=== PATIENT | male | born 1945 | race Caucasian/White ===

== ENCOUNTER 2018-02-12 13:50 | Inpatient (IN) | payer OTHER ==
[2018-02-12 14:03] VITALS: BMI 35.2
--- NOTE | 2018-02-12 14:23 | PDOC ---
History of Present Illness - General Chief Complaint: Revisit, Lab Variance Stated Complaint: ANEMIA Time Seen by Provider: 02/12/18 14:21 - History of Present Illness Initial Comments: 02/12/18 14:22 Mr. Gomez is a 72 yo male w/ pmh of GERD, HTN, afib, anxiety, schizophrenia , colon cancer (s/p resection) who presents from [facility] for evaluation of anemia noted on labs. Patient was found to have hemoglobin of 7.4 and was sent to [facility] for transfusion. Mr. Cueto reports he has no complaints however has felt increasingly tired over the last few months. The patient denies chest pain, shortness of breath, headache and dizziness. Denies fever, chills, nausea, vomit, diarrhea and constipation. Denies dysuria, frequency, urgency and hematuria. 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 No fever or chills. HEAD, EYES, EARS, NOSE AND THROAT: No change in vision. No ear pain or discharge. No sore throat. CARDIOVASCULAR: +increasing shortness of breath. No chest pain RESPIRATORY: No cough, wheezing, or hemoptysis. GASTROINTESTINAL: No nausea, vomiting, diarrhea or constipation. GENITOURINARY: No dysuria, frequency, or change in urination. MUSCULOSKELETAL: No joint or muscle swelling or pain. No neck or back pain. SKIN: No rash NEUROLOGIC: No headache, vertigo, loss of consciousness, or change in strength/ sensation. ENDOCRINE: No increased thirst. No abnormal weight change HEMATOLOGIC/LYMPHATIC: No anemia, easy bleeding, or history of blood clots. ALLERGIC/IMMUNOLOGIC: No hives or skin allergy. *Physical Exam - Vital Signs Last Vital Signs Temp Pulse Resp BP Pulse Ox 98.1 F 73 20 119/61 95 02/12/18 13:59 02/12/18 13:59 02/12/18 13:59 02/12/18 13:59 02/12/18 13:59 - Physical Exam Comments: 02/12/18 14:23 GENERAL: +Patient generally pale appearing. Awake, alert, and fully oriented, in no acute distress HEAD: No signs of trauma, normocephalic, atraumatic EYES: PERRLA, EOMI, sclera anicteric, conjunctiva clear ENT: Auricles normal inspection, hearing grossly normal, nares patent, oropharynx clear without exudates. Moist mucosa NECK: Normal ROM, supple, no lymphadenopathy, JVD, or masses LUNGS: No distress, speaks full sentences, clear to auscultation bilaterally HEART: Regular rate and rhythm, normal S1 and S2, no murmurs, rubs or gallops, peripheral pulses normal and equal bilaterally. ABDOMEN: Soft, nontender, normoactive bowel sounds. No guarding, no rebound. No masses EXTREMITIES: Normal inspection, Normal range of motion, no edema. No clubbing or cyanosis. NEUROLOGICAL: Cranial nerves II through XII grossly intact. Normal speech, normal gait, no focal sensorimotor deficits SKIN: Warm, Dry, normal turgor, no rashes or lesions noted. ED Treatment Course - LABORATORY CBC & Chemistry Diagram: 02/12/18 15:00 02/12/18 15:00 Medical Decision Making - Medical Decision Making 02/12/18 16:58 Mr. Cueto is a 72 yo male w/ pmh as described who presents for evaluation of anemia noted on routine labs. Anemia confirmed in ER. 1 unit PRBC's ordered for evaluation. Patient will be admitted for further evaluation of anemia source. *DC/Admit/Observation/Transfer Diagnosis at time of Disposition: Anemia Qualifiers: Anemia type: unspecified type Qualified Code(s): D64.9 - Anemia, unspecified - Discharge Dispostion Decision to Admit order: Yes - Referrals Referrals: Sharee Slaughter MD [Primary Care Provider] - - Patient Instructions - Post Discharge Activity
--- NOTE | 2018-02-12 14:50 | PDOC ---
Attending Attestation - Resident Resident Name: Wilfrid Ramesh - ED Attending Attestation I have performed the following: I have examined & evaluated the patient, The case was reviewed & discussed with the resident, I agree w/resident's findings & plan, Exceptions are as noted - HPI HPI: 02/12/18 14:42 72y M hx of hx of gerd, afib not on ac, htn, schizophrenia, colon resection due to ca from [facility] presnts with hgb for transfusion and gi w/u. pt notes mild kwon generally weakness. denies any recet cp, sob, bpr, melena. will recheck hbg will reassess and dw PMD - Physicial Exam PE: 02/12/18 16:17 General: well appearing, no distress Abd: soft nontender, slightly distended - Medical Decision Making 02/12/18 16:15 labs reviewed cbc noted to be anemic to 7.9, pt notes he typically runs in the 8-9 range, but in jul, his hbg was 15 and in october it was 12. pt does endorse some kwon/sob and feeling lightheaded which is a chronic feeling for him will ck with dr. cardenas regarding whether she would prefer to transfuse and regarding GI workup as inpatient or outpatient. 02/12/18 16:[address] cardenas's [employer]K [employer] requests admission for further workup for symptomatic anemia
[2018-02-12 15:44] LABS: BASO % 0.6 % (0-2.0); EOS % 1.7 % (0-4.5); HEMATOCRIT 26.3 % (35.4-49); HEMOGLOBIN 7.9 GM/dL (11.7-16.9); MCH 21.3 pg (25.7-33.7); MCHC 30.2 g/dl (32.0-35.9); MEAN CELL VOLUME 70.8 fl (80-96); MEAN PLT VOLUME 7.7 fl (7.5-11.1); MONO % 8.7 % (3.8-10.2); PLATELET COUNT 382 K/MM3 (134-434); RBC 3.71 M/mm3 (4.00-5.60); RDW 21.3 % (11.9-15.9); WHITE BLOOD COUNT 7.6 K/mm3 (4.0-10.0)
[2018-02-12 15:56] LABS: INR 1.15 (0.82-1.09)
[2018-02-12 15:59] LABS: ACTIVATED PTT 23.5 SECONDS (25.2-36.5)
[2018-02-12 16:11] LABS: ALBUMIN 3.2 g/dl (3.4-5.0); ANION GAP 8 (8-16); BILIRUBIN,TOTAL 0.7 mg/dL (0.2-1.0); BLOOD UREA NITROGEN 9 mg/dL (7-18); CALCIUM 10.2 mg/dL (8.5-10.1); CHLORIDE 104 mmol/L (98-107); CO2 31 mmol/L (21-32); CREATININE 0.9 mg/dL (0.7-1.3); GLUCOSE,RANDOM 116 mg/dL (74-106); POTASSIUM 3.5 mmol/L (3.5-5.1); SGOT/AST 17 U/L (15-37); SGPT/ALT 18 U/L (12-78); SODIUM 143 mmol/L (136-145); TOT PROT 6.7 g/dl (6.4-8.2)
[2018-02-12 16:12] LABS: ALK PHOS 127 U/L (45-117)
--- NOTE | 2018-02-12 17:34 | HP ---
Admitting History and Physical - Primary Care Physician PCP: Sharee Slaughter I - Admission Chief Complaint: low hgb, weakness, sob, body aches History of Present Illness: This is a 72 year old male with pmhx colon ca s/p resection 11, pernicious anemia, htn, a fib (not on ac), GERD, anxiety schizophrenia presented from [facility], where he is a resident, due to hgb level of 7.4. Pt has regularly been seeing a hemetolgoist at [place] Dr. Will Prather, however in October 2017 was told they no longer take his insurance. During his visits, his hgb has been stable ~15 -12. Since parting [facility], Dr. Slaughter has been following him. Pt reports for 2-3 weeks hes been feeling fatigue and sob with activities with associated muscles aches. Denies dizziness, logan, hematochezia, hematuria n/v, changes in bowel urine, chest pain. Note: pt states he drink chuckie seltzer plus nightly with 325mg daily History Source: Patient Limitations to Obtaining History: No Limitations - Past Medical History Cardiovascular: Yes: AFIB, HTN Gastrointestinal: Yes: Cancer, GERD Heme/Onc: Yes: Anemia Psych: Yes: Anxiety, Schizophrenia - Past Surgical History Past Surgical History: Yes: Colectomy - Smoking History Smoking history: Former smoker Have you smoked in the past 12 months: No If you are a former smoker, when did you quit?: 10YRS - Alcohol/Substance Use Hx Alcohol Use: No - Social History Usual Living Arrangement: Yes: Assisted Living ADL: Independent Home Medications - Allergies Allergies/Adverse Reactions: Allergies Allergy/AdvReac Type Severity Reaction Status Date / Time chlorpromazine Allergy Verified 02/12/18 13:59 [From Thorazine] haloperidol [From Haldol] Allergy Verified 02/12/18 13:59 Penicillins Allergy Verified 02/12/18 13:57 Review of Systems - Review of Systems Constitutional: reports: Lethargy, Weakness Eyes: reports: No Symptoms HENT: reports: No Symptoms Neck: reports: No Symptoms Cardiovascular: reports: No Symptoms Respiratory: reports: SOB on Exertion Gastrointestinal: reports: No Symptoms Genitourinary: reports: No Symptoms Musculoskeletal: reports: No Symptoms Integumentary: reports: Pallor Neurological: reports: No Symptoms Endocrine: reports: No Symptoms Hematology/Lymphatic: reports: No Symptoms Psychiatric: reports: No Symptoms Physical Examination Vital Signs: Vital Signs Temperature 98.1 F 02/12/18 13:59 Pulse Rate 73 02/12/18 13:59 Respiratory Rate 20 02/12/18 13:59 Blood Pressure 119/61 02/12/18 13:59 O2 Sat by Pulse Oximetry (%) 95 02/12/18 13:59 Constitutional: Yes: Pallor Eyes: Yes: Conjunctiva Clear HENT: Yes: Atraumatic Cardiovascular: Yes: Regular Rate and Rhythm, S1, S2 Respiratory: Yes: CTA Bilaterally, Diminished Gastrointestinal: Yes: Normal Bowel Sounds, Soft Musculoskeletal: Yes: WNL Extremities: Yes: WNL Edema: No Integumentary: Yes: WNL Neurological: Yes: Alert, Oriented, Cran Nerves II-XII Intact Psychiatric: Yes: Alert, Oriented Labs: CBC, BMP 02/12/18 15:00 02/12/18 15:00 Imaging - Results Chest X-ray: Pending, Image Reviewed Problem List - Problems (1) Anemia Code(s): D64.9 - ANEMIA, UNSPECIFIED Qualifiers: Anemia type: unspecified type Qualified Code(s): D64.9 - Anemia, unspecified Assessment/Plan Assessment: 72 year old male admitted with anemia Plan: 1. Symptomatic acute blood loss anemia, hx of pernicious anemia - Has been taking chuckie seltzer plus (ASA 325mg) - Acute drop in hgb - Obtain iron studies - Transfuse 1uprbc - Stool occult negative - Daily b12 - GI consulted eval for scope 2. AFIB - Rate controlled, no AC - Continue lopressor 50mg BID 3. HTN - Lopressor BID 4. GERD - Protonix daily 5. Psych - No meds 6. DVT - hold chemical ac, scds Visit type - Emergency Visit Emergency Visit: Yes Care time: The patient presented to the Emergency Department on the above date and was hospitalized for further evaluation of their emergent condition. - New Patient This patient is new to me today: Yes Date on this admission: 02/12/18 - Critical Care Critical Care patient: No Hospitalist Screening - Colonoscopy Questionnaire Colonoscopy Questionnaire: Colonoscopy Questionnaire - Patient: 50 - 75 years old and never had a screening colonoscopy: Yes History of colon or rectal polyps, or CA: Yes History of IBD, Crohn's disease or UC: Unknown History of abdominal radiation therapy as a child: Unknown - Relative: 1 with colon or rectal CA, or polyps at age 60 or younger: Unknown Colon or rectal CA diagnosed at age 45 or younger: Unknown Multiple relatives with colon or rectal CA: Unknown - Outcome: Screening Result: Positive Screen
[2018-02-12 18:36] LABS: ANISOCYTOSIS 2+; MACROCYTOSIS 1+; OVALOCYTE 1+
[2018-02-12 18:37] LABS: PLATELET ESTIMATE ADEQUATE
[2018-02-12 21:31] LABS: URINE APPEARANCE TURBID; URINE BILIRUBIN NEGATIVE (<2.0 mg/dL); URINE COLOR AMBER; URINE GLUCOSE (UA) NEGATIVE (NEGATIVE); URINE KETONE NEGATIVE (NEGATIVE); URINE LEUK ESTERASE NEGATIVE (NEGATIVE); URINE NITRITE NEGATIVE (NEGATIVE); URINE UROBILINOGEN 4.0 E.U/dl mg/dL (0.2-1.0)
[2018-02-12 21:35] LABS: URINE PROTEIN 1+ (NEGATIVE)
[2018-02-12 21:47] LABS: URINE HYALINE CAST 10 /lpf; URINE MUCUS RARE
[2018-02-12] MEDS: PANTOPRAZOLE 40 MG TABLET (FP) PO SCH (22:40)
[2018-02-12] MEDS: METOPROLOL TARTRATE 50 MG TABLET (FP) PO SCH (22:40)
--- NOTE | 2018-02-13 05:44 | HOSP ---
Subjective - Review of Symptoms Events since last encounter: nurse called to report pt unable to lay flat for CT. CT abdomen/pelvis ordered as ? pneumoperitoneum noted on CXR. Subjective: Pt reports when he went to lay flat for CT he felt pressure in his head and ears and had to sit back up. He reports that he has been getting these symptoms followed by dizziness for years since the 70s. He denies abdominal pain, discomfort, nausea, vomiting. Physical Examination Vital Signs: Vital Signs Temperature 98.3 F 02/13/18 01:06 Pulse Rate 70 02/13/18 01:06 Respiratory Rate 18 02/13/18 01:06 Blood Pressure 122/68 02/13/18 01:06 O2 Sat by Pulse Oximetry (%) 96 02/13/18 02:00 Constitutional: Yes: No Distress, Calm Cardiovascular: Yes: Regular Rate and Rhythm, S1, S2 Respiratory: Yes: CTA Bilaterally, Diminished (bilat bases) Gastrointestinal: Yes: Normal Bowel Sounds, Soft. No: Tenderness Edema: LLE: Trace, RLE: 1+ Labs: CBC, BMP 02/12/18 15:00 02/12/18 15:00 Hospitalist Encounter Assessment: abnormal findings on chest xray--?pneumoperitoneum - abdominal exam benign and pt denies complaints - pt unable to lay flat for CT - will resume diet as pt with no complaints Vertigo - chronic, ongoing, no further workup indicated at this time
[2018-02-13 07:36] LABS: BASO % 0.6 % (0-2.0); EOS % 2.1 % (0-4.5); HEMATOCRIT 26.7 % (35.4-49); HEMOGLOBIN 8.5 GM/dL (11.7-16.9); LYMPH % 11.1 % (8-40); MCH 23.2 pg (25.7-33.7); MEAN CELL VOLUME 72.7 fl (80-96); MEAN PLT VOLUME 7.6 fl (7.5-11.1); MONO % 10.2 % (3.8-10.2); PLATELET COUNT 307 K/MM3 (134-434); RBC 3.68 M/mm3 (4.00-5.60); RDW 21.7 % (11.9-15.9); WHITE BLOOD COUNT 8.7 K/mm3 (4.0-10.0)
[2018-02-13 08:06] LABS: ALBUMIN 2.9 g/dl (3.4-5.0); CALCIUM 9.6 mg/dL (8.5-10.1); CHLORIDE 106 mmol/L (98-107); POTASSIUM 3.3 mmol/L (3.5-5.1); SODIUM 141 mmol/L (136-145)
[2018-02-13 08:12] LABS: ALK PHOS 113 U/L (45-117); ANION GAP 4 (8-16); BILIRUBIN,TOTAL 0.8 mg/dL (0.2-1.0); BLOOD UREA NITROGEN 11 mg/dL (7-18); CO2 31 mmol/L (21-32); CREATININE 0.9 mg/dL (0.7-1.3); GLUCOSE,RANDOM 96 mg/dL (74-106); SGOT/AST 16 U/L (15-37); SGPT/ALT 15 U/L (12-78); TOT PROT 6.2 g/dl (6.4-8.2)
[2018-02-13] MEDS ORDERED: POTASSIUM CHLORIDE ORAL LIQUID 20 MEQ/15 ML PO ONE ×2 (09:15→12:00)
[2018-02-13] MEDS: METOPROLOL TARTRATE 50 MG TABLET (FP) PO SCH ×2 (12:12→21:53)
[2018-02-13] MEDS: CALCIUM 500MG/VIT-D 200 UNITS COMBO TABLET (FP) PO SCH (12:13)
--- NOTE | 2018-02-13 12:44 | PN ---
Physical Exam: SUBJECTIVE: Patient seen and examined. Feels much improved, sob with ambulation , dizziness and body aches resolved. OBJECTIVE: Vital Signs Period Temp Pulse Resp BP Sys/Bautista Pulse Ox Last 24 Hr 97.6 F-98.4 F 70-87 18-20 119-141/61-80 95-97 Pe Neuro: alert, awake, cn 2-12 intact Pulm: CTAB CV: s1 s2 rrr Abd: obese abd, s nt nd + bs Ext: warm, trace le edema Laboratory Results - last 24 hr 02/12/18 02/12/18 02/12/18 15:00 15:00 15:00 WBC 7.6 RBC 3.71 L Hgb 7.9 L Hct 26.3 L MCV 70.8 L MCH 21.3 L MCHC 30.2 L RDW 21.3 H Plt Count 382 MPV 7.7 Absolute Neuts (auto) 5.9 Neutrophils % 78.0 Lymphocytes % 11.0 Monocytes % 8.7 Eosinophils % 1.7 Basophils % 0.6 Nucleated RBC % 0 Hypochromia 2+ Platelet Estimate Adequate Platelet Comment Polychromasia 1+ Poikilocytosis 1+ Anisocytosis 2+ Microcytosis 1+ Macrocytosis 1+ Ovalocytes 1+ PT with INR 13.00 INR 1.15 H PTT (Actin FS) 23.5 L Sodium 143 Potassium 3.5 Chloride 104 Carbon Dioxide 31 Anion Gap 8 BUN 9 Creatinine 0.9 Creat Clearance w eGFR > 60 Random Glucose 116 H Calcium 10.2 H Ferritin Total Bilirubin 0.7 AST 17 ALT 18 Alkaline Phosphatase 127 H Total Protein 6.7 Albumin 3.2 L Urine Color Urine Appearance Urine pH Ur Specific [place] Urine Protein Urine Glucose (UA) Urine Ketones Urine Blood Urine Nitrite Urine Bilirubin Urine Urobilinogen Ur Leukocyte Esterase Urine WBC (Auto) Urine RBC (Auto) Hyaline Casts Urine Mucus Stool Occult Blood Blood Type Antibody Screen Crossmatch 02/12/18 02/12/18 02/12/18 15:00 15:00 15:20 WBC RBC Hgb Hct MCV MCH MCHC RDW Plt Count MPV Absolute Neuts (auto) Neutrophils % Lymphocytes % Monocytes % Eosinophils % Basophils % Nucleated RBC % Hypochromia Platelet Estimate Platelet Comment Polychromasia Poikilocytosis Anisocytosis Microcytosis Macrocytosis Ovalocytes PT with INR INR PTT (Actin FS) Sodium Potassium Chloride Carbon Dioxide Anion Gap BUN Creatinine Creat Clearance w eGFR Random Glucose Calcium Ferritin 2.2 L Total Bilirubin AST ALT Alkaline Phosphatase Total Protein Albumin Urine Color Urine Appearance Urine pH Ur Specific [place] Urine Protein Urine Glucose (UA) Urine Ketones Urine Blood Urine Nitrite Urine Bilirubin Urine Urobilinogen Ur Leukocyte Esterase Urine WBC (Auto) Urine RBC (Auto) Hyaline Casts Urine Mucus Stool Occult Blood Negative Blood Type A POSITIVE Antibody Screen Negative Crossmatch See Detail 02/12/18 02/12/18 02/13/18 17:20 20:45 06:15 WBC 8.7 RBC 3.68 L Hgb 8.5 L Hct 26.7 L MCV 72.7 L MCH 23.2 L MCHC 32.0 RDW 21.7 H Plt Count 307 MPV 7.6 Absolute Neuts (auto) 6.6 Neutrophils % 76.0 Lymphocytes % 11.1 Monocytes % 10.2 Eosinophils % 2.1 Basophils % 0.6 Nucleated RBC % 0 Hypochromia Platelet Estimate Platelet Comment Polychromasia Poikilocytosis Anisocytosis Microcytosis Macrocytosis Ovalocytes PT with INR INR PTT (Actin FS) Sodium Potassium Chloride Carbon Dioxide Anion Gap BUN Creatinine Creat Clearance w eGFR Random Glucose Calcium Ferritin Total Bilirubin AST ALT Alkaline Phosphatase Total Protein Albumin Urine Color Jeanie Urine Appearance Turbid Urine pH 7.0 Ur Specific [place] 1.013 Urine Protein 1+ H Urine Glucose (UA) Negative Urine Ketones Negative Urine Blood Negative Urine Nitrite Negative Urine Bilirubin Negative Urine Urobilinogen 4.0 e.u/dl Ur Leukocyte Esterase Negative Urine WBC (Auto) 9 Urine RBC (Auto) 2 Hyaline Casts 10 Urine Mucus Rare Stool Occult Blood Blood Type A POSITIVE Antibody Screen Crossmatch 02/13/18 06:15 WBC RBC Hgb Hct MCV MCH MCHC RDW Plt Count MPV Absolute Neuts (auto) Neutrophils % Lymphocytes % Monocytes % Eosinophils % Basophils % Nucleated RBC % Hypochromia Platelet Estimate Platelet Comment Polychromasia Poikilocytosis Anisocytosis Microcytosis Macrocytosis Ovalocytes PT with INR INR PTT (Actin FS) Sodium 141 Potassium 3.3 L Chloride 106 Carbon Dioxide 31 Anion Gap 4 L BUN 11 D Creatinine 0.9 Creat Clearance w eGFR > 60 Random Glucose 96 Calcium 9.6 Ferritin Total Bilirubin 0.8 AST 16 ALT 15 Alkaline Phosphatase 113 Total Protein 6.2 L Albumin 2.9 L Urine Color Urine Appearance Urine pH Ur Specific [place] Urine Protein Urine Glucose (UA) Urine Ketones Urine Blood Urine Nitrite Urine Bilirubin Urine Urobilinogen Ur Leukocyte Esterase Urine WBC (Auto) Urine RBC (Auto) Hyaline Casts Urine Mucus Stool Occult Blood Blood Type Antibody Screen Crossmatch Active Medications Generic Name Dose Route Start Last Admin Trade Name Aixa PRN Reason Stop Dose Admin Calcium Carbonate/Cholecalciferol 1 tab 02/13/18 10:00 02/13/18 12:13 Os-Tu 500+D - PO 1 tab DAILY LIDIA Administration Cyanocobalamin 100 mcg 02/13/18 10:00 Vitamin B12 - PO DAILY LIDIA Metoprolol Tartrate 50 mg 02/12/18 22:00 02/13/18 12:12 Lopressor - PO 50 mg BID LIDIA Administration Pantoprazole Sodium 40 mg 02/12/18 22:00 02/12/18 22:40 Protonix - PO 40 mg HS LIDIA Administration Assessment: 72 year old male admitted with anemia Plan: 1. Symptomatic acute blood loss anemia, hx of pernicious anemia - Transfused 1uprbc with appropriate rise - Has been taking chuckie seltzer plus (ASA 325mg) - Iron studies pending - Daily b12 - GI consulted eval for scope 2. abnormal findings on chest xray--?pneumoperitoneum - Repeat CXR flat up right - No abdominal signs/sx 3. AFIB - Rate controlled, no AC - Continue lopressor 50mg BID 4. HTN - Lopressor BID 5. GERD - Protonix daily 6. Psych - No meds 7. DVT - hold chemical ac, scds 8. Hypokalemia - Replete potassium 40meq x1 Problem List - Problems (1) Anemia Code(s): D64.9 - ANEMIA, UNSPECIFIED Qualifiers: Anemia type: unspecified type Qualified Code(s): D64.9 - Anemia, unspecified Visit type - Emergency Visit Emergency Visit: Yes ED Registration Date: 02/12/18 Care time: The patient presented to the Emergency Department on the above date and was hospitalized for further evaluation of their emergent condition. - New Patient This patient is new to me today: No - Critical Care Critical Care patient: No
[2018-02-13] MEDS: CYANOCOBALAMIN (VITAMIN B-12) 100 MCG TABLET PO SCH (15:00)
--- NOTE | 2018-02-13 17:15 | CON.GI ---
Consult Consult Specialty:: GI Reason for Consultation:: Anemia - History of Present Illness History of Present Illness: Chart reviewed. Events noted. As per Initial intake: This is a 72 year old male with pmhx of colon ca s/p resection in 2010, pernicious anemia, htn, a fib (not on ac), GERD, anxiety schizophrenia presented from [facility], where he is a resident, due to hgb level of 7.4. Pt has regularly been seeing a hemetolgoist at [facility] Dr. Will Prather, however in October 2017 was told they no longer take his insurance. During his visits, his hgb has been stable ~15 -12. Since parting [facility], Dr. Slaughter has been following him. Pt reports for 2-3 weeks hes been feeling fatigue and sob with activities with associated muscles aches. Denies dizziness, logan, hematochezia, hematuria n/v, changes in bowel urine, chest pain. At the time of this encounter the pat appeared comfortable, not in distress, or pain. Corroborated the above history. Reports no signs of gross GI bleeding while in the long-term. Denies melena, hematochezia, hematemesis, dysphagia, odynophagia, jaundice, weight loss. Last EDG and cancer surveillance colonoscopy we done at [facility] in 2014. No abnormalities were found. 3 month ago had Hgb in 12-15 g/dl range. 3 weeks ago became symptomatic. - History Source History Provided By: Patient, Medical Record - Past Medical History Cardio/Vascular: Yes: AFIB, HTN Gastrointestinal: Yes: Cancer, GERD Psych: Yes: Anxiety, Schizophrenia - Past Surgical History Past Surgical History: Yes: Colectomy - Alcohol/Substance Use Hx Alcohol Use: No - Smoking History Smoking history: Former smoker Have you smoked in the past 12 months: No If you are a former smoker, when did you quit?: 10YRS - Social History ADL: Independent Home Medications - Allergies Allergies/Adverse Reactions: Allergies Allergy/AdvReac Type Severity Reaction Status Date / Time chlorpromazine Allergy Verified 02/12/18 13:59 [From Thorazine] haloperidol [From Haldol] Allergy Verified 02/12/18 13:59 Penicillins Allergy Verified 02/12/18 13:57 Family Disease History - Family Disease History Family History: Unremarkable Review of Systems Findings/Remarks: as per HPI, H&P, ED Physical Exam-GI Vital Signs: Vital Signs Temperature 97.8 F 02/13/18 14:49 Pulse Rate 84 02/13/18 14:49 Respiratory Rate 20 02/13/18 14:49 Blood Pressure 138/70 02/13/18 14:49 O2 Sat by Pulse Oximetry (%) 96 02/13/18 02:00 Constitutional: Yes: Well Nourished, No Distress, Calm, Pallor Eyes: Yes: Conjunctiva Clear HENT: Yes: Atraumatic Neck: Yes: Supple Cardiovascular: Yes: Regular Rate and Rhythm Respiratory: Yes: Regular Gastrointestinal Inspection: No: Ascites, Distention ...Auscultate: Yes: Normoactive Bowel Sounds ...Palpate: Yes: Soft. No: Firm/Rigid, Guarding, Mass, Tenderness, Rebound ...Rectal Exam: Yes: Guaiac Negative Neurological: Yes: Alert, Oriented Labs: CBC, BMP 02/13/18 06:15 02/13/18 06:15 INR, PTT INR 1.15 (0.82-1.09) H 02/12/18 15:00 Laboratory Last Values WBC 8.7 K/mm3 (4.0-10.0) 02/13/18 06:15 RBC 3.68 M/mm3 (4.00-5.60) L 02/13/18 06:15 Hgb 8.5 GM/dL (11.7-16.9) L 02/13/18 06:15 Hct 26.7 % (35.4-49) L 02/13/18 06:15 MCV 72.7 fl (80-96) L 02/13/18 06:15 MCH 23.2 pg (25.7-33.7) L 02/13/18 06:15 MCHC 32.0 g/dl (32.0-35.9) 02/13/18 06:15 RDW 21.7 % (11.9-15.9) H 02/13/18 06:15 Plt Count 307 K/MM3 (134-434) 02/13/18 06:15 MPV 7.6 fl (7.5-11.1) 02/13/18 06:15 Absolute Neuts (auto) 6.6 # 02/13/18 06:15 Neutrophils % 76.0 % (42.8-82.8) 02/13/18 06:15 Lymphocytes % 11.1 % (8-40) 02/13/18 06:15 Monocytes % 10.2 % (3.8-10.2) 02/13/18 06:15 Eosinophils % 2.1 % (0-4.5) 02/13/18 06:15 Basophils % 0.6 % (0-2.0) 02/13/18 06:15 Nucleated RBC % 0 % (0-0) 02/13/18 06:15 Hypochromia 2+ 02/12/18 15:00 Platelet Estimate Adequate 02/12/18 15:00 Platelet Comment 02/12/18 15:00 Polychromasia 1+ 02/12/18 15:00 Poikilocytosis 1+ 02/12/18 15:00 Anisocytosis 2+ 02/12/18 15:00 Microcytosis 1+ 02/12/18 15:00 Macrocytosis 1+ 02/12/18 15:00 Ovalocytes 1+ 02/12/18 15:00 PT with INR 13.00 SEC (9.7-13.0) 02/12/18 15:00 INR 1.15 (0.82-1.09) H 02/12/18 15:00 PTT (Actin FS) 23.5 SECONDS (25.2-36.5) L 02/12/18 15:00 Sodium 141 mmol/L (136-145) 02/13/18 06:15 Potassium 3.3 mmol/L (3.5-5.1) L 02/13/18 06:15 Chloride 106 mmol/L (98-107) 02/13/18 06:15 Carbon Dioxide 31 mmol/L (21-32) 02/13/18 06:15 Anion Gap 4 (8-16) L 02/13/18 06:15 BUN 11 mg/dL (7-18) D 02/13/18 06:15 Creatinine 0.9 mg/dL (0.7-1.3) 02/13/18 06:15 Creat Clearance w eGFR > 60 (>60) 02/13/18 06:15 Random Glucose 96 mg/dL (74-106) 02/13/18 06:15 Calcium 9.6 mg/dL (8.5-10.1) 02/13/18 06:15 Ferritin 2.2 ng/ml (16.4-293.9) L 02/12/18 15:00 Total Bilirubin 0.8 mg/dL (0.2-1.0) 02/13/18 06:15 AST 16 U/L (15-37) 02/13/18 06:15 ALT 15 U/L (12-78) 02/13/18 06:15 Alkaline Phosphatase 113 U/L (45-117) 02/13/18 06:15 Total Protein 6.2 g/dl (6.4-8.2) L 02/13/18 06:15 Albumin 2.9 g/dl (3.4-5.0) L 02/13/18 06:15 Urine Color Jeanie 02/12/18 20:45 Urine Appearance Turbid 02/12/18 20:45 Urine pH 7.0 (5.0-8.0) 02/12/18 20:45 Ur Specific [place] 1.013 (1.001-1.035) 02/12/18 20:45 Urine Protein 1+ (NEGATIVE) H 02/12/18 20:45 Urine Glucose (UA) Negative (NEGATIVE) 02/12/18 20:45 Urine Ketones Negative (NEGATIVE) 02/12/18 20:45 Urine Blood Negative (NEGATIVE) 02/12/18 20:45 Urine Nitrite Negative (NEGATIVE) 02/12/18 20:45 Urine Bilirubin Negative (<2.0 mg/dL) 02/12/18 20:45 Urine Urobilinogen 4.0 e.u/dl mg/dL (0.2-1.0) 02/12/18 20:45 Ur Leukocyte Esterase Negative (NEGATIVE) 02/12/18 20:45 Urine WBC (Auto) 9 /hpf (3-5) 02/12/18 20:45 Urine RBC (Auto) 2 /hpf (0-3) 02/12/18 20:45 Hyaline Casts 10 /lpf 02/12/18 20:45 Urine Mucus Rare 02/12/18 20:45 Stool Occult Blood Negative (NEGATIVE) 02/12/18 15:20 Blood Type A POSITIVE 02/12/18 17:20 Antibody Screen Negative 02/12/18 15:00 Crossmatch See Detail 02/12/18 15:00 Problem List - Problems (1) Microcytic hypochromic anemia Code(s): D50.9 - IRON DEFICIENCY ANEMIA, UNSPECIFIED (2) History of colon cancer Code(s): Z85.038 - PERSONAL HISTORY OF MALIGNANT NEOPLASM OF LARGE INTESTINE Assessment/Plan A 72M with history of colon cancer in 2010, microcytic, hypochromic anemia, requiring multiple iron infusions and no apparent stigmata of recent, or ongoing GI bleeding. As discussed with the patient today, plan EGD and colonoscopy. Obtain B12, Folate, Iron profile. Hematology consult.
[2018-02-13] MEDS: PANTOPRAZOLE 40 MG TABLET (FP) PO SCH (21:53)
[2018-02-14 06:37] LABS: SERUM IRON SATURATION 3 % (15-55); TOTAL IRON BINDING CAPACITY 429 ug/dL (250-450); UIBC 415 ug/dL (111-343)
[2018-02-14 07:33] LABS: HEMATOCRIT 27.1 % (35.4-49); HEMOGLOBIN 8.6 GM/dL (11.7-16.9); MCH 23.1 pg (25.7-33.7); MCHC 31.6 g/dl (32.0-35.9); MEAN PLT VOLUME 7.8 fl (7.5-11.1); PLATELET COUNT 312 K/MM3 (134-434); RBC 3.71 M/mm3 (4.00-5.60); RDW 21.8 % (11.9-15.9); WHITE BLOOD COUNT 7.4 K/mm3 (4.0-10.0)
[2018-02-14 08:00] LABS: ANION GAP 5 (8-16); BLOOD UREA NITROGEN 10 mg/dL (7-18); CALCIUM 9.5 mg/dL (8.5-10.1); CHLORIDE 108 mmol/L (98-107); CO2 29 mmol/L (21-32); CREATININE 0.9 mg/dL (0.7-1.3); GLUCOSE,RANDOM 92 mg/dL (74-106); LDH 139 U/L (87-241); POTASSIUM 3.6 mmol/L (3.5-5.1); SODIUM 142 mmol/L (136-145)
[2018-02-14] MEDS: METOPROLOL TARTRATE 50 MG TABLET (FP) PO SCH ×2 (10:58→23:30)
[2018-02-14] MEDS: CYANOCOBALAMIN (VITAMIN B-12) 100 MCG TABLET PO SCH (10:58)
[2018-02-14] MEDS: CALCIUM 500MG/VIT-D 200 UNITS COMBO TABLET (FP) PO SCH (10:58)
[2018-02-14] MEDS ORDERED: BISACODYL 5 MG TABLET.DR (FP) PO ONE (15:00)
--- NOTE | 2018-02-14 16:57 | PN ---
Physical Exam: SUBJECTIVE: Patient seen and examined. No bleeding. Will not take go lytely OBJECTIVE: Vital Signs Period Temp Pulse Resp BP Sys/Bautista Pulse Ox Last 24 Hr 98.2 F-98.9 F 72-86 18-20 116-150/60-76 95-95 Pe Neuro: alert, awake, cn 2-12 intact Pulm: CTAB CV: s1 s2 rrr Abd: obese abd, s nt nd + bs Ext: warm, trace le edema Laboratory Results - last 24 hr 02/12/18 02/14/18 02/14/18 15:00 06:00 06:00 WBC 7.4 RBC 3.71 L Hgb 8.6 L Hct 27.1 L MCV 73.0 L MCH 23.1 L MCHC 31.6 L RDW 21.8 H Plt Count 312 MPV 7.8 Sodium 142 Potassium 3.6 Chloride 108 H Carbon Dioxide 29 Anion Gap 5 L BUN 10 Creatinine 0.9 Creat Clearance w eGFR > 60 Random Glucose 92 Calcium 9.5 Iron 14 L TIBC 429 Iron Saturation 3 L LD Total 139 Vitamin B12 Serum Folate 18 H 02/14/18 06:00 WBC RBC Hgb Hct MCV MCH MCHC RDW Plt Count MPV Sodium Potassium Chloride Carbon Dioxide Anion Gap BUN Creatinine Creat Clearance w eGFR Random Glucose Calcium Iron TIBC Iron Saturation LD Total Vitamin B12 282 Serum Folate Active Medications Generic Name Dose Route Start Last Admin Trade Name Freq PRN Reason Stop Dose Admin Calcium Carbonate/Cholecalciferol 1 tab 02/13/18 10:00 02/14/18 10:58 Os-Tu 500+D - PO 1 tab DAILY LIDIA Administration Cyanocobalamin 100 mcg 02/13/18 10:00 02/14/18 10:58 Vitamin B12 - PO 100 mcg DAILY LIDIA Administration Metoprolol Tartrate 50 mg 02/12/18 22:00 02/14/18 10:58 Lopressor - PO 50 mg BID LIDIA Administration Pantoprazole Sodium 40 mg 02/12/18 22:00 02/13/18 21:53 Protonix - PO 40 mg HS LIDIA Administration Polyethylene Glycol/Electrolytes 4,000 ml 02/14/18 18:00 Golytely Solution - PO 02/14/18 18:01 ONCE ONE Assessment: 72 year old male admitted with anemia Plan: 1. Symptomatic acute blood loss anemia, hx of pernicious anemia - Transfused 1uprbc with appropriate rise - Has been taking chuckie seltzer plus (ASA 325mg) - Iron studies noted - Dose venofer today - Daily b12 - For EGD/colonoscopy - Heme consulted 2. abnormal findings on chest xray--?pneumoperitoneum - Repeat CXR flat up right - No abdominal signs/sx 3. AFIB - Rate controlled, no AC - Continue lopressor 50mg BID 4. HTN - Lopressor BID 5. GERD - Protonix daily 6. Psych - No meds 7. DVT - hold chemical ac, scds 8. Hypokalemia - resolved Problem List - Problems (1) Anemia Code(s): D64.9 - ANEMIA, UNSPECIFIED Qualifiers: Anemia type: unspecified type Qualified Code(s): D64.9 - Anemia, unspecified Visit type - Emergency Visit Emergency Visit: Yes ED Registration Date: 02/12/18 Care time: The patient presented to the Emergency Department on the above date and was hospitalized for further evaluation of their emergent condition. - New Patient This patient is new to me today: No - Critical Care Critical Care patient: No
[2018-02-14] MEDS ORDERED: IRON SUCROSE INJECTION 200 MG in SODIUM CHLORIDE 240 ML IVPB ONE (16:59)
[2018-02-14] MEDS ORDERED: PEG 3350/NA SULF BICARB CL/KCL 4000 ML SOLN.RECON PO ONE (18:00)
[2018-02-14] MEDS ORDERED: POLYETHYLENE GLYCOL 3350 255 GM BTL PO ONE (18:15)
[2018-02-14] MEDS: PANTOPRAZOLE 40 MG TABLET (FP) PO SCH (23:30)
[2018-02-15 07:57] LABS: BASO % 0.5 % (0-2.0); EOS % 2.5 % (0-4.5); HEMATOCRIT 28.8 % (35.4-49); LYMPH % 12.6 % (8-40); MCH 22.8 pg (25.7-33.7); MCHC 31.2 g/dl (32.0-35.9); MEAN CELL VOLUME 73.2 fl (80-96); MEAN PLT VOLUME 7.8 fl (7.5-11.1); MONO % 9.6 % (3.8-10.2); NEUT % 74.8 % (42.8-82.8); PLATELET COUNT 331 K/MM3 (134-434); RBC 3.93 M/mm3 (4.00-5.60); RDW 22.1 % (11.9-15.9); WHITE BLOOD COUNT 8.4 K/mm3 (4.0-10.0)
[2018-02-15 10:02] LABS: INR 1.18 (0.82-1.09); PROTHROMBIN TIME (PATIENT) 13.3 SEC (9.7-13.0)
[2018-02-15] MEDS ORDERED: PROPOFOL 20 ML ONE ×2 (10:38)
[2018-02-15] MEDS ORDERED: MIDAZOLAM HCL 2 MG/2 ML SINGLE DOSE VIAL ONE (10:45)
--- NOTE | 2018-02-15 11:53 | PROC ---
Endoscopy Procedure Endoscopy procedure completed. Please see scanned procedure report. duodenitis and esophagitis on EGD, biopsies taken Ileocolonic anastomosis at 30 cm, 2 small polyps found and removed @ 30 and 50 cm follow biopsies results as OP resume previous diet
[2018-02-15] MEDS ORDERED: PT OWN MED DRAWER 7, Y5N ONE (13:01)
[2018-02-15] MEDS: METOPROLOL TARTRATE 50 MG TABLET (FP) PO SCH ×2 (13:13→23:51)
[2018-02-15] MEDS: CALCIUM 500MG/VIT-D 200 UNITS COMBO TABLET (FP) PO SCH (13:14)
[2018-02-15] MEDS: CYANOCOBALAMIN (VITAMIN B-12) 100 MCG TABLET PO SCH (13:14)
--- NOTE | 2018-02-15 14:33 | PN ---
Physical Exam: SUBJECTIVE: Patient seen and examined post procedure. Well tolerated. OBJECTIVE: Vital Signs Period Temp Pulse Resp BP Sys/Bautista Pulse Ox Last 24 Hr 97.6 F-98.4 F 72-98 18-20 112-147/60-104 94-96 Pe Neuro: alert, awake, cn 2-12 intact Pulm: CTAB CV: s1 s2 rrr Abd: obese abd, s nt nd + bs Ext: warm, no le edema Laboratory Results - last 24 hr 02/15/18 02/15/18 06:20 09:25 WBC 8.4 RBC 3.93 L Hgb 9.0 L Hct 28.8 L MCV 73.2 L MCH 22.8 L MCHC 31.2 L RDW 22.1 H Plt Count 331 MPV 7.8 Absolute Neuts (auto) 6.2 Neutrophils % 74.8 Lymphocytes % 12.6 Monocytes % 9.6 Eosinophils % 2.5 Basophils % 0.5 Nucleated RBC % 0 PT with INR 13.30 H INR 1.18 H Active Medications Generic Name Dose Route Start Last Admin Trade Name Aixa PRN Reason Stop Dose Admin Calcium Carbonate/Cholecalciferol 1 tab 02/13/18 10:00 02/15/18 13:14 Os-Tu 500+D - PO 1 tab DAILY LIDIA Administration Cyanocobalamin 100 mcg 02/13/18 10:00 02/15/18 13:14 Vitamin B12 - PO 100 mcg DAILY LIDIA Administration Metoprolol Tartrate 50 mg 02/12/18 22:00 02/15/18 13:13 Lopressor - PO 50 mg BID LIDIA Administration Pantoprazole Sodium 40 mg 02/12/18 22:00 02/14/18 23:30 Protonix - PO 40 mg HS LIDIA Administration Assessment: 72 year old male admitted with anemia Plan: 1. Symptomatic acute blood loss anemia, hx of pernicious anemia, iron deficiency anemia - Upper and lower scope done: EGD shows duodenitis and esophagitis, f/u biopsies , ileocolonic anastomosis at 30 cm, 2 small polyps found and removed - Transfused 1uprbc 02/12, hgb stable - Dose venofer again today (x2 doses of 5) - Start Ferrous sulfate on discharge - Daily b 12 - Already on ppi - Heme consulted - Advise pt to stop taking chuckie seltzer - D/w GI pt can dc home 2. abnormal findings on chest xray--?pneumoperitoneum - CXR noted, pt unable to lay flat for CT, currently no infectious pulmonary or abdominal signs or complaints - Will monitor and xray abd if worsens 3. AFIB - Rate controlled, no AC - Continue lopressor 50mg BID 4. HTN - Lopressor BID 5. GERD - Protonix daily 6. Psych - No meds 7. DVT - hold chemical ac, scds 8. Hypokalemia - resolved Dispo: - Possible dc home tomorrow Problem List - Problems (1) Anemia Code(s): D64.9 - ANEMIA, UNSPECIFIED Qualifiers: Anemia type: unspecified type Qualified Code(s): D64.9 - Anemia, unspecified Visit type - Emergency Visit Emergency Visit: Yes ED Registration Date: 02/12/18 Care time: The patient presented to the Emergency Department on the above date and was hospitalized for further evaluation of their emergent condition. - New Patient This patient is new to me today: No - Critical Care Critical Care patient: No
[2018-02-15] MEDS ORDERED: IRON SUCROSE INJECTION 200 MG in SODIUM CHLORIDE 240 ML IVPB ONE (14:37)
--- NOTE | 2018-02-15 21:34 | CONSULT ---
Consult - text type - Consultation Consultation Note: Mr. Cueto is a 72 yo male w/ pmh of GERD, HTN, afib, anxiety, schizophrenia, colon cancer (s/p resection) who presents from [facility] for evaluation of anemia noted on labs. Patient was found to have hemoglobin of 7.[address] [facility] for transfusion. Mr. Cueto reports he has no complaints however has felt increasingly tired over the last few months. The patient denies chest pain, shortness of breath, headache and dizziness. Denies fever, chills, nausea, vomit, diarrhea and constipation. Denies dysuria, frequency, urgency and hematuria. 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 - Surgical History Abdominal Surgery: Yes (NEOPLASM REMOVAL) - Immunization History Immunization Up to Date: Yes - Suicide/Smoking/Psychosocial Hx Smoking History: Former smoker - Vital Signs AFVSS Cor: RSR, No murmurs, No gallops Lungs: Clear to P&A Abd: Soft, Normal bowel sounds, No organomegaly Ext:No significant edema Abnormal Lab Results 02/15/18 02/15/18 06:20 09:25 RBC 3.93 L Hgb 9.0 L Hct 28.8 L MCV 73.2 L MCH 22.8 L MCHC 31.2 L RDW 22.1 H PT with INR 13.30 H INR 1.18 H Active Medications Generic Name Dose Route Start Last Admin Trade Name Freq PRN Reason Stop Dose Admin Calcium Carbonate/Cholecalciferol 1 tab 02/13/18 10:00 02/15/18 13:14 Os-Tu 500+D - PO 1 tab DAILY LIDIA Administration Cyanocobalamin 100 mcg 02/13/18 10:00 02/15/18 13:14 Vitamin B12 - PO 100 mcg DAILY LIDIA Administration Metoprolol Tartrate 50 mg 02/12/18 22:00 02/15/18 13:13 Lopressor - PO 50 mg BID LIDIA Administration Pantoprazole Sodium 40 mg 02/12/18 22:00 02/14/18 23:30 Protonix - PO 40 mg HS LIDIA Administration A/P A 72M with history of colon cancer in 2010, microcytic, hypochromic anemia, requiring multiple iron infusions ferritin 2 confirming iron deficiency s/p 200mg IV iron on 02/14 and 02/15 s/p 1 unit PRBCs duodenitis and esophagitis on EGD, biopsies pending Ileocolonic anastomosis at 30 cm, 2 small polyps found and removed @ 30 and 50 cm--to follow biopsy results f/u biopsies
[2018-02-15] MEDS: PANTOPRAZOLE 40 MG TABLET (FP) PO SCH (23:51)
[2018-02-16] MEDS ORDERED: PT OWN MED DRAWER 7, Y5N ONE (09:41)
[2018-02-16] MEDS: CALCIUM 500MG/VIT-D 200 UNITS COMBO TABLET (FP) PO SCH (09:42)
[2018-02-16] MEDS: CYANOCOBALAMIN (VITAMIN B-12) 100 MCG TABLET PO SCH (09:42)
[2018-02-16] MEDS: METOPROLOL TARTRATE 50 MG TABLET (FP) PO SCH ×2 (09:42→22:20)
--- NOTE | 2018-02-16 15:04 | PATH ---
Surgical Pathology Report Patient Name: MARY BETH BELTRAN [facility]. Rec. #: [id number] /Age/Gender: 1945 (Age: 72) / M Account: [id number] Location: [facility] MED/SURG Taken: 02/15/2018 Received: 02/15/2018 Reported: 02/16/2018 Physicians: Hubert Salter ACNP Specimen(s) Received A: BX ANTRUM AND BODY B: BX 2ND PORTION DUODENUM C: BX GE JUNCTION D: POLYP AT 50 CM E: POLYP AT 30 CM Clinical History Anemia Postoperative diagnosis: Duodenitis, esophagitis, colon polyps Final Diagnosis A. STOMACH, ANTRUM/BODY, BIOPSY: GASTRIC BODY MUCOSA WITH MILD CHRONIC GASTRITIS. IMMUNOHISTOCHEMICAL STAIN FOR H. PYLORI IS NEGATIVE. B. DUODENUM, SECOND PORTION, BIOPSY: DUODENAL MUCOSA WITHOUT SIGNIFICANT PATHOLOGIC FINDINGS. C. 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 NO DYSPLASIA IDENTIFIED. D. COLON, 50 CM, POLYP, POLYPECTOMY: POLYPOID JUNCTIONAL MUCOSA WITH MILD INCREASE IN ACUTE AND CHRONIC INFLAMMATORY CELLS WITHIN LAMINA PROPRIA. E. COLON, 30 CM, POLYP, POLYPECTOMY: POLYPOID COLONIC MUCOSA WITH FOCAL ACTIVE COLITIS. SEE COMMENT. Comment: Findings are non-specific. Although acute self-limited colitis is a consideration, among other conditions, the possibility of early inflammatory bowel disease cannot be completely excluded. Suggest clinical/radiologic correlation. Electronically Signed Kerrie Hurst M.D. Gross Description A. Received in formalin, labeled " biopsy antrum/body " are 2 chow, irregular portions of soft tissue measuring 0.3 and 0.4 cm. in greatest dimension. The specimens are submitted in toto in one cassette. B. Received in formalin, labeled " biopsy second portion of duodenum " is a chow, irregular portion of soft tissue measuring 0.4 cm. in greatest dimension. The specimen is submitted in toto in one cassette. C. Received in formalin, labeled "biopsy GE junction" are 2 chow, irregular portions of soft tissue averaging 0.3 cm. in greatest dimension. The specimens are submitted in toto in one cassette. D. Received in formalin, labeled "biopsy polyp at 50 cm" is a chow, irregular portion of soft tissue measuring 0.4 cm. in greatest dimension. The specimen is submitted in toto in one cassette. E. Received in formalin, labeled "biopsy polyp at 30 cm" is a chow, irregular portion of soft tissue measuring 0.3 cm. in greatest dimension. The specimen is submitted in toto in one cassette. 02/15/2018 [facility]02/15/2018
--- NOTE | 2018-02-16 19:07 | PN ---
Progress Note (short form) - Note Progress Note: chart reviewed events noted discussed case with nurse - patient able to provide hx Vital Signs Period Temp Pulse Resp BP Sys/Bautista Pulse Ox Last 24 Hr 97.4 F-98.3 F 67-93 18-20 121-145/67-93 98-98 neck supple heart S1/S2 lungs clear bilat abd obese / soft / non tendr ext muscle atrophy / no edema / + pulses LE deformities CBC, BMP 02/15/18 06:20 02/14/18 06:00 admitted with hgb 7.4 Active Medications Calcium Carbonate/Cholecalciferol (Os-Tu 500+D -) 1 tab PO DAILY [facility] Last Admin: 02/16/18 09:42 Dose: 1 tab Cyanocobalamin (Vitamin B12 -) 100 mcg PO DAILY [facility] Last Admin: 02/16/18 09:42 Dose: 100 mcg Diazepam (Valium -) 4 mg PO ONCE ONE Stop: 02/16/18 22:16 Docusate Sodium (Colace -) 300 mg PO HS [facility] Folic Acid (Folic Acid -) 1 mg PO DAILY [facility] Folic Acid/Iron (Folitab 500 Caplet -) 1 each PO DAILY [facility] Metoprolol Tartrate (Lopressor -) 50 mg PO BID [facility] Last Admin: 02/16/18 09:42 Dose: 50 mg Multivitamins/Minerals/Vitamin C (Tab-A-Vit -) 1 tab PO DAILY [facility] Pantoprazole Sodium (Protonix -) 40 mg PO HS [facility] Last Admin: 02/15/18 23:51 Dose: 40 mg Plan: 1. Symptomatic blood loss anemia, hx of pernicious anemia, iron deficiency anemia -- progression over 3 months Hx of colon cancer s/p resection distant past - Upper and lower scope done: EGD shows duodenitis and esophagitis, f/u biopsies , ileocolonic anastomosis at 30 cm, 2 small polyps found and removed - Transfused 1uprbc 02/12, hgb stable - Dose venofer again today (x2 doses of 5) - Start Ferrous sulfate on discharge / MVI / Folic acid / vit C/ colace - Daily b 12 - Already on ppi - Heme consulted - Advise pt to stop taking chuckie seltzer 2. abnormal findings on chest xray--?pneumoperitoneum - CXR noted, pt unable to lay flat for CT, currently no infectious pulmonary or abdominal signs or complaints - Will monitor and xray abd if worsens 3. AFIB - Rate controlled, no AC - Continue lopressor 50mg BID - fill start ASA EC 81 4. HTN - Lopressor BID 5. GERD - Protonix daily 6. Psych - No meds 7. DVT - hold chemical ac, scds 8. Hypokalemia - resolved Dispo: - to [facility] in am
[2018-02-16] MEDS ORDERED: diazePAM 5 MG TABLET ONE (21:33)
[2018-02-16] MEDS ORDERED: FOLIC ACID 1 MG TABLET (FP) PO SCH (22:00)
[2018-02-16] MEDS ORDERED: DOCUSATE SODIUM 100 MG CAPSULE (FP) PO SCH (22:00)
[2018-02-16] MEDS ORDERED: diazePAM 2 MG TABLET PO ONE (22:15)
[2018-02-16] MEDS: FERROUS SO4/VIT C/FA 1 EACH TABLET.ER PO SCH (22:19)
[2018-02-16] MEDS: MULTIVITAMINS (DAILY MVI) TABLET (FP) PO SCH (22:20)
[2018-02-16] MEDS: FOLIC ACID 1 MG TABLET (FP) PO SCH (22:20)
[2018-02-16] MEDS: PANTOPRAZOLE 40 MG TABLET (FP) PO SCH (22:20)
[2018-02-17 07:52] LABS: BASO % 0.7 % (0-2.0); EOS % 2.7 % (0-4.5); HEMATOCRIT 32.7 % (35.4-49); HEMOGLOBIN 10.1 GM/dL (11.7-16.9); LYMPH % 13.5 % (8-40); MCHC 30.8 g/dl (32.0-35.9); MEAN CELL VOLUME 74.6 fl (80-96); MEAN PLT VOLUME 7.9 fl (7.5-11.1); MONO % 8.4 % (3.8-10.2); NEUT % 74.7 % (42.8-82.8); PLATELET COUNT 384 K/MM3 (134-434); RBC 4.38 M/mm3 (4.00-5.60); WHITE BLOOD COUNT 9.7 K/mm3 (4.0-10.0)
[2018-02-17 08:12] LABS: CHLORIDE 106 mmol/L (98-107); POTASSIUM 3.3 mmol/L (3.5-5.1); SODIUM 143 mmol/L (136-145)
[2018-02-17 08:18] LABS: ANION GAP 10 (8-16); BLOOD UREA NITROGEN 7 mg/dL (7-18); CALCIUM 10.2 mg/dL (8.5-10.1); CO2 27 mmol/L (21-32); CREATININE 0.9 mg/dL (0.7-1.3); GLUCOSE,RANDOM 108 mg/dL (74-106); MAGNESIUM 2.1 mg/dL (1.8-2.4)
--- NOTE | 2018-02-17 08:42 | DS ---
Physical Examination Vital Signs: Vital Signs Temperature 97.7 F 02/17/18 05:56 Pulse Rate 72 02/17/18 05:56 Respiratory Rate 20 02/17/18 05:56 Blood Pressure 126/69 02/17/18 05:56 O2 Sat by Pulse Oximetry (%) 95 02/16/18 21:00 Findings/Remarks: Mr. Cueto is a 72 yo male w/ pmh of GERD, HTN, afib, anxiety, schizophrenia, colon cancer (s/p resection) who presents from [facility] for evaluation of symptomatic anemia. Labs confirming drop in H/H. Patient was found to have hemoglobin of 7.[address] [facility] for transfusion. Mr. Cueto reported he felt increasingly tired over the last few months. 1. Symptomatic blood loss anemia, hx of pernicious anemia, iron deficiency anemia - Upper and lower scope done: EGD shows duodenitis and esophagitis, f/u biopsies, ileocolonic anastomosis at 30 cm, 2 small polyps - Transfused 1uprbc 02/12, hgb has remained stable - venofer during hosp stay - Ferrous sulfate / colace / MVI /folic acid / PPi / on discharge - Daily b 12 2. AFIB - Rate controlled, no AC - will start ASA EC 81 mg - Continue lopressor 50mg BID 3. HTN - Lopressor BID 4. GERD / Duodenitis - d/c chuckie-seltzer - Protonix daily 5. Psych - No meds Constitutional: Yes: Well Nourished, No Distress, Calm Eyes: Yes: Conjunctiva Clear, EOM Intact HENT: Yes: Atraumatic, Normocephalic Neck: Yes: Supple, Trachea Midline Cardiovascular: Yes: Pulse Irregular Respiratory: Yes: Regular, CTA Bilaterally Gastrointestinal: Yes: Normal Bowel Sounds, Abdomen, Obese ...Rectal Exam: Yes: Guaiac Positive (on admission) Renal/: Yes: WNL Breast(s): Yes: WNL Musculoskeletal: Yes: Muscle Weakness (Lower extremety muscle atrophy) Extremities: Yes: Deformity (LE). No: Calf Tenderness, Cyanosis Edema: No Integumentary: Yes: WNL Neurological: Yes: Alert, Oriented, Pre-Existing Deficit Psychiatric: Yes: Alert, Oriented Labs: CBC, BMP 02/17/18 06:45 02/17/18 06:45 Discharge Summary Reason For Visit: ANEMIA Current Active Problems Anemia (Acute) History of colon cancer (Acute) Microcytic hypochromic anemia (Acute) Condition: Improved - Instructions Referrals: Sharee Slaughter MD [Primary Care Provider] - Disposition: CARE HOME FACILITY - Home Medications Comprehensive Discharge Medication List: Ambulatory Orders Calcium 500Mg/Vit-D 200 Units [Os-Tu 500+D -] 1 tab PO DAILY tab 02/17/18 Cyanocobalamin [Vitamin B12 -] 100 mcg PO DAILY tablet 02/17/18 Diazepam [Valium] 4 mg PO HS #14 tablet MDD 4mg 02/17/18 Docusate Sodium [Colace -] 300 mg PO HS capsule 02/17/18 Ferrous Sulfate/Vit C/FA [Folitab 500 Caplet -] 1 each PO DAILY 30 Days #30 tablet.er 02/17/18 Folic Acid - 1 mg PO DAILY 30 Days #30 tablet 02/17/18 Metoprolol Tartrate [Lopressor -] 50 mg PO BID tablet 02/17/18 Multivitamins [Multivit ([facility] Formulary)] 1 tab PO DAILY #30 tab 02/17/18 Pantoprazole Sodium [Protonix -] 40 mg PO HS tablet.ec 02/17/18
[2018-02-17] MEDS ORDERED: PT OWN MED DRAWER 7, Y5N ONE (09:06)
[2018-02-17] MEDS ORDERED: POTASSIUM CHLORIDE TABS 20 MEQ TABLET.ER (FP) PO ONE (09:30)
[2018-02-17] MEDS: CALCIUM 500MG/VIT-D 200 UNITS COMBO TABLET (FP) PO SCH (09:32)
[2018-02-17] MEDS: MULTIVITAMINS (DAILY MVI) TABLET (FP) PO SCH (09:32)
[2018-02-17] MEDS: CYANOCOBALAMIN (VITAMIN B-12) 100 MCG TABLET PO SCH (09:32)
[2018-02-17] MEDS: FERROUS SO4/VIT C/FA 1 EACH TABLET.ER PO SCH (09:32)
[2018-02-17] MEDS: METOPROLOL TARTRATE 50 MG TABLET (FP) PO SCH (09:32)
[2018-02-17] MEDS: FOLIC ACID 1 MG TABLET (FP) PO SCH (09:32)
[2018-02-17 10:30] VITALS: BP 147/76; PULSE 93; TEMP 98.7
== END 2018-02-17 16:19 | DRG 241 ==
LOC: JER 13:50 → JERBED 17:00 → J7W 18:40
PROVIDERS: ADMIT Family Medicine; ATTEND Family Medicine
PROC: 0DD68ZX Extraction of Stomach, Via Natural or Artificial Opening Endoscopic, Diagnostic (ICD-10-PCS; 2018-02-15)
PROC: 0DBE8ZX Excision of Large Intestine, Via Natural or Artificial Opening Endoscopic, Diagnostic (ICD-10-PCS; 2018-02-15)
PROC: 30233N1 Transfusion of Nonautologous Red Blood Cells into Peripheral Vein, Percutaneous Approach (ICD-10-PCS; 2018-02-15)
PROC: 0DD58ZX Extraction of Esophagus, Via Natural or Artificial Opening Endoscopic, Diagnostic (ICD-10-PCS; principal; 2018-02-15 11:00)
DX: K29.80 Duodenitis without bleeding (principal); D50.9 Iron deficiency anemia, unspecified; D62 Acute posthemorrhagic anemia; I48.91 Unspecified atrial fibrillation; I10 Essential (primary) hypertension; F41.9 Anxiety disorder, unspecified; F20.9 Schizophrenia, unspecified; K21.9 Gastro-esophageal reflux disease without esophagitis; R42 Dizziness and giddiness; E87.6 Hypokalemia; K20.9 Esophagitis, unspecified; K64.8 Other hemorrhoids; Z87.891 Personal history of nicotine dependence; Z85.038 Personal history of other malignant neoplasm of large intestine; Z00.01 Encounter for general adult medical examination with abnormal findings
CPT/HCPCS: 36415; 36430; 71045-TC-FY; 71046-TC-FY; 80048; 80053; 81003; 81015; 82272; 82607; 82728; 82746; 83010; 83540; 83550; 83615; 83735; 85025; 85027; 85610; 85730; 86850; 86900; 86901; 86922; 87086; 88305-TC; 99283-25; J1756; P9038; P9058

== ENCOUNTER 2021-09-03 07:55 | Inpatient (IN) | payer OTHER ==
[2021-09-03 09:19] LABS: HEMOGLOBIN 11.8 GM/dL (11.7-16.9); MCH 30.2 pg (25.7-33.7); MEAN CELL VOLUME 94.1 fl (80-96); MEAN PLT VOLUME 8.8 fl (7.5-11.1); PLATELET COUNT 329 10^3/uL (134-434); RBC 3.93 M/mm3 (4.00-5.60); RDW 14.5 % (11.9-15.9)
[2021-09-03 09:27] LABS: INR 1.27 (0.83-1.09); PROTHROMBIN TIME (PATIENT) 14.3 SEC (9.7-13.0)
[2021-09-03] MEDS ORDERED: SODIUM CHLORIDE 0.9% 500 ML INFUS.BAG IV ONE ×4 (09:29→13:18)
[2021-09-03 09:30] LABS: ACTIVATED PTT 25.2 SECONDS (25.2-36.5)
[2021-09-03 09:42] LABS: VENOUS BASE EXCESS -5.7 mmol/L (-2-2); VENOUS O2 SATURATION 40.4 % (70-80); VENOUS PCO2 42.6 mmHg (38-52); VENOUS PH 7.299 (7.310-7.410)
[2021-09-03 09:52] LABS: CHLORIDE 106 mmol/L (98-107); IRON SERUM 224 ug/dL (50-175); SODIUM 141 mmol/L (136-145)
[2021-09-03 09:53] LABS: BILIRUBIN,DIRECT 0.2 mg/dL (0.0-0.2); TOTAL IRON BINDING CAPACITY 295 ug/dL (250-450)
[2021-09-03 09:54] LABS: ANION GAP 13 MMOL/L (8-16); CALCIUM 10.3 mg/dL (8.5-10.1); CO2 21 mmol/L (21-32)
[2021-09-03] MEDS ORDERED: PANTOPRAZOLE SODIUM 40 MG VIAL IVPUSH ONE (09:54)
[2021-09-03 09:55] LABS: GLUCOSE,RANDOM 116 mg/dL (74-106)
[2021-09-03 09:57] LABS: CREATININE 1.9 mg/dL (0.55-1.3)
[2021-09-03 09:58] LABS: SGOT/AST 46 U/L (15-37); SGPT/ALT 23 U/L (13-61)
[2021-09-03 09:59] LABS: BILIRUBIN,TOTAL 1.1 mg/dL (0.2-1); TOT PROT 6.2 g/dl (6.4-8.2)
[2021-09-03 10:00] LABS: ALK PHOS 96 U/L (45-117); LDH 466 U/L (87-246)
[2021-09-03 10:03] LABS: N-TERMINAL BNP 2179.3 pg/ml (5-125)
[2021-09-03] MEDS ORDERED: PANTOPRAZOLE SODIUM 80 MG/200 ML BAG IVPB ONE (10:11)
[2021-09-03 10:26] LABS: LACTIC ACID 6.6 mmol/L (0.4-2.0)
[2021-09-03] MEDS ORDERED: VANCOMYCIN 1 GM in D5W (PRE-DOCKED) 1,000 MG/250 ML IVPB ONE (10:36)
[2021-09-03] MEDS ORDERED: CEFEPIME HCL/D5W 1 GM/50 ML BAG IVPB ONE (10:36)
[2021-09-03 10:57] LABS: BLOOD UREA NITROGEN 109.7 mg/dL (7-18)
[2021-09-03 10:58] LABS: ANISOCYTOSIS 1+; MACROCYTOSIS 1+; PLATELET ESTIMATE NORMAL
[2021-09-03] MEDS ORDERED: VANCOMYCIN 1 GRAM (PRE-DOCKED) 1,000 MG/250 ML BAG IVPB ONE (11:13)
[2021-09-03] MEDS ORDERED: CEFEPIME 1 GM/100 ML BAG IVPB ONE (11:13)
[2021-09-03] MEDS ORDERED: ACETAMINOPHEN 1000 MG/100 ML BAG IVPB ONE (11:16)
[2021-09-03 11:41] LABS: EPI CELLS 6 /uL (0-25.1); HYALINE CASTS 8 /uL (0-3.1); URINE APPEARANCE TURBID; URINE BACTERIA 235 /uL (0-1359); URINE BILIRUBIN NEGATIVE (NEGATIVE); URINE COLOR DK YELLOW; URINE GLUCOSE (UA) NEGATIVE (NEGATIVE); URINE KETONE TRACE (NEGATIVE); URINE LEUK ESTERASE 2+ (NEGATIVE); URINE NITRITE NEGATIVE (NEGATIVE); URINE PROTEIN 2+ (NEGATIVE); URINE RBC 1794 /uL (0-23.9); URINE WBC 235 /uL (0-25.8)
[2021-09-03] MEDS ORDERED: ACETAMINOPHEN INJECTION 100 ML IVPB ONE (11:48)
[2021-09-03 12:39] LABS: ARTERIAL BLD GAS O2 SATURATION 99.2 % (95-98); ARTERIAL BLOOD GAS PO2 161.3 mmHg (80-100); ARTERIAL BLOOD GAS pH 7.441 (7.350-7.450)
[2021-09-03 12:42] LABS: HEMOGLOBIN 9.5 GM/dL (11.7-16.9); MCH 30.5 pg (25.7-33.7); MCHC 32.9 g/dl (32.0-35.9); MEAN CELL VOLUME 92.6 fl (80-96); MEAN PLT VOLUME 8.3 fl (7.5-11.1); PLATELET COUNT 254 10^3/uL (134-434); RBC 3.14 M/mm3 (4.00-5.60); WHITE BLOOD COUNT 24.2 K/mm3 (4.0-10.0)
[2021-09-03 12:53] LABS: INR 1.44 (0.83-1.09); PROTHROMBIN TIME (PATIENT) 16.2 SEC (9.7-13.0)
[2021-09-03 12:55] LABS: CHLORIDE 108 mmol/L (98-107); SODIUM 139 mmol/L (136-145)
[2021-09-03 12:58] LABS: ANION GAP 12 MMOL/L (8-16); CO2 19 mmol/L (21-32); GLUCOSE,RANDOM 163 mg/dL (74-106)
[2021-09-03] MEDS ORDERED: SODIUM CHLORIDE 1,000 ML IV STA (12:59)
[2021-09-03] MEDS ORDERED: SODIUM CHLORIDE 1,000 ML IV SCH ×2 (13:00→14:30)
[2021-09-03 13:01] LABS: CREATININE 2.2 mg/dL (0.55-1.3); SGOT/AST 19 U/L (15-37); SGPT/ALT 17 U/L (13-61)
[2021-09-03 13:03] LABS: BILIRUBIN,TOTAL 0.8 mg/dL (0.2-1); TOT PROT 4.8 g/dl (6.4-8.2)
[2021-09-03 13:04] LABS: ALK PHOS 76 U/L (45-117)
[2021-09-03 13:09] LABS: ALBUMIN 2.1 g/dl (3.4-5.0); BLOOD UREA NITROGEN 118.5 mg/dL (7-18)
[2021-09-03] MEDS ORDERED: LORazepam 2 MG/ML SDV VIAL IVPUSH ONE (13:24)
[2021-09-03 13:28] LABS: ANISOCYTOSIS 0; MACROCYTOSIS 0; OVALOCYTE 1+; PLATELET ESTIMATE NORMAL
[2021-09-03] MEDS ORDERED: LORazepam 2 MG/ML SDV VIAL ONE (13:28)
[2021-09-03] MEDS ORDERED: MIDAZOLAM HCL 2 MG/2 ML SINGLE DOSE VIAL IVPUSH ONE (14:05)
[2021-09-03] MEDS ORDERED: MIDAZOLAM HCL 2 MG/2 ML SINGLE DOSE VIAL ONE ×3 (14:07→17:59)
[2021-09-03 14:11] LABS: LACTIC ACID 5.9 mmol/L (0.4-2.0)
[2021-09-03] MEDS ORDERED: FLUMAZENIL 0.5 MG/5 ML VIAL IVPUSH ONE (14:22)
[2021-09-03] MEDS ORDERED: RAPID SEQUENCE INTUBATION KIT NR ONE (14:29)
[2021-09-03] MEDS ORDERED: PANTOPRAZOLE SODIUM 80 MG in SODIUM CHLORIDE 100 ML IVPB SCH (14:30)
[2021-09-03] MEDS ORDERED: PANTOPRAZOLE SODIUM 160 MG in SODIUM CHLORIDE 290 ML IVPB SCH (14:30)
[2021-09-03] MEDS ORDERED: MIDAZOLAM 100 MG in SODIUM CHLORIDE 100 ML IVPB SCH (15:30)
[2021-09-03] MEDS ORDERED: MIDAZOLAM IN 0.9 % SOD.CHLORID 100 MG/100 ML PLAST..BAG IVPB SCH (15:41)
[2021-09-03] MEDS ORDERED: MIDAZOLAM IN 0.9 % SOD.CHLORID 1 MG/1 ML PLAST..BAG ONE (16:37)
[2021-09-03 17:31] LABS: ARTERIAL BLD GAS O2 SATURATION 99.6 % (95-98); ARTERIAL BLOOD GAS BASE EXCESS -7.1 mmol/L (-2-2); ARTERIAL BLOOD GAS PO2 269.7 mmHg (80-100)
[2021-09-03] MEDS ORDERED: MIDAZOLAM HCL 5 MG/1 ML Single Dose Vial IVPUSH ONE ×2 (17:33→20:54)
[2021-09-03 17:35] LABS: MCH 29.9 pg (25.7-33.7); MCHC 32.3 g/dl (32.0-35.9); MEAN CELL VOLUME 92.7 fl (80-96); MEAN PLT VOLUME 8.7 fl (7.5-11.1); PLATELET COUNT 259 10^3/uL (134-434); RBC 3.01 M/mm3 (4.00-5.60); RDW 14.2 % (11.9-15.9)
[2021-09-03 17:46] LABS: WHITE BLOOD COUNT 30.7 K/mm3 (4.0-10.0)
[2021-09-03 18:04] LABS: LACTIC ACID 2.6 mmol/L (0.4-2.0)
[2021-09-03 18:12] LABS: CHLORIDE 113 mmol/L (98-107); SODIUM 143 mmol/L (136-145)
[2021-09-03 18:14] LABS: CALCIUM 8.3 mg/dL (8.5-10.1)
[2021-09-03 18:15] LABS: ALBUMIN 2.2 g/dl (3.4-5.0); ANION GAP 11 MMOL/L (8-16); CO2 19 mmol/L (21-32); GLUCOSE,RANDOM 130 mg/dL (74-106)
[2021-09-03 18:18] LABS: CREATININE 2.2 mg/dL (0.55-1.3); SGOT/AST 18 U/L (15-37); SGPT/ALT 17 U/L (13-61)
[2021-09-03 18:19] LABS: TOT PROT 4.4 g/dl (6.4-8.2)
[2021-09-03 18:20] LABS: BILIRUBIN,TOTAL 0.7 mg/dL (0.2-1)
[2021-09-03 18:29] LABS: BLOOD UREA NITROGEN 115.2 mg/dL (7-18)
[2021-09-03] MEDS ORDERED: NOREPINEPHRINE NS PREMIX 16,000 MCG/500 ML BAG IVPB SCH (19:00)
[2021-09-03 19:22] LABS: ALK PHOS 70 U/L (45-117)
[2021-09-03 20:11] LABS: ANISOCYTOSIS 1+; MACROCYTOSIS 1+; OVALOCYTE 1+
[2021-09-03] MEDS ORDERED: OCTREOTIDE ACETATE 50 MCG/1 ML - 1 ML VIAL IVPUSH ONE (20:12)
[2021-09-03] MEDS ORDERED: OCTREOTIDE ACETATE 100 MCG/1 ML ONE (20:18)
[2021-09-03] MEDS ORDERED: OCTREOTIDE ACETATE 200 MCG, OCTREOTIDE ACETATE 1,000 MCG in DEXTROSE 5%-WATER - 496 ML IVPB SCH (20:30)
[2021-09-03] MEDS ORDERED: FENTANYL NS IVPB 500 MCG/100 ML BAG IVPB SCH (20:30)
[2021-09-03] MEDS ORDERED: VECURONIUM BROMIDE 50 MG/50 ML VIAL IVPUSH ONE (20:57)
[2021-09-03 20:59] LABS: HEMATOCRIT 33.5 % (35.4-49); HEMOGLOBIN 10.9 GM/dL (11.7-16.9); MCH 29.6 pg (25.7-33.7); MCHC 32.5 g/dl (32.0-35.9); MEAN CELL VOLUME 91.3 fl (80-96); MEAN PLT VOLUME 8.5 fl (7.5-11.1); PLATELET COUNT 208 10^3/uL (134-434); RBC 3.67 M/mm3 (4.00-5.60); WHITE BLOOD COUNT 23.2 K/mm3 (4.0-10.0)
[2021-09-03 21:03] LABS: ARTERIAL BLD GAS O2 SATURATION 99.1 % (95-98); ARTERIAL BLOOD GAS BASE EXCESS -6.8 mmol/L (-2-2); ARTERIAL BLOOD GAS PO2 179.6 mmHg (80-100); ARTERIAL BLOOD GAS pH 7.331 (7.350-7.450)
[2021-09-03] MEDS ORDERED: ETOMIDATE 20 MG/10 ML AMPUL IVPUSH ONE (21:04)
[2021-09-03 21:07] LABS: ALLENS TEST POSITIVE; VENT MODE A/C; VENT RATE 18
[2021-09-03 21:13] LABS: INR 1.29 (0.83-1.09); PROTHROMBIN TIME (PATIENT) 14.5 SEC (9.7-13.0)
[2021-09-03 21:21] LABS: CHLORIDE 112 mmol/L (98-107); SODIUM 142 mmol/L (136-145)
[2021-09-03 21:23] LABS: CALCIUM 7.7 mg/dL (8.5-10.1)
[2021-09-03 21:24] LABS: ALBUMIN 1.9 g/dl (3.4-5.0); ANION GAP 11 MMOL/L (8-16); CO2 20 mmol/L (21-32); GLUCOSE,RANDOM 105 mg/dL (74-106)
[2021-09-03 21:26] LABS: SGPT/ALT 16 U/L (13-61)
[2021-09-03 21:27] LABS: CREATININE 2.4 mg/dL (0.55-1.3); SGOT/AST 26 U/L (15-37)
[2021-09-03 21:28] LABS: BILIRUBIN,TOTAL 1.5 mg/dL (0.2-1); TOT PROT 4.5 g/dl (6.4-8.2)
[2021-09-03 21:29] LABS: LACTIC ACID 2.6 mmol/L (0.4-2.0)
[2021-09-03 21:30] LABS: ALK PHOS 70 U/L (45-117)
[2021-09-03] MEDS ORDERED: ROCURONIUM BROMIDE 50 MG/5 ML VIAL IVPUSH ONE (21:30)
[2021-09-03] MEDS ORDERED: ETOMIDATE 40 MG/20 ML VIAL IVPUSH ONE (21:31)
[2021-09-03 21:36] LABS: BLOOD UREA NITROGEN 117.3 mg/dL (7-18)
[2021-09-03] MEDS ORDERED: CHLORHEXIDINE GLUCONATE 4% CLEANSER FOR DECOLONIZATION TP SCH (22:00)
[2021-09-03] MEDS ORDERED: MUPIROCIN 2% TOPICAL OINTMENT FOR DECOLONIZATION NS SCH (22:00)
[2021-09-03 22:49] LABS: ANISOCYTOSIS 1+; MACROCYTOSIS 1+; OVALOCYTE 1+
[2021-09-03 23:18] VITALS: BMI 36.2
[2021-09-03] MEDS ORDERED: VASOPRESSIN 40 UNITS/100 ML BAG IV SCH (23:45)
[2021-09-04 02:23] VITALS: TEMP 98.7
[2021-09-04 04:46] VITALS: BP 121/65; PULSE 104
== END 2021-09-04 04:30 | disposition short-term general hospital (02) | DRG 253 ==
LOC: JER 07:55 → JERBED 09:53 → JICU 22:09
PROVIDERS: ADMIT Internal Medicine Pulmonary Disease; ATTEND Internal Medicine Pulmonary Disease
PROC: 06HM33Z Insertion of Infusion Device into Right Femoral Vein, Percutaneous Approach (ICD-10-PCS; principal; 2021-09-03)
PROC: B51BZZA Fluoroscopy of Right Lower Extremity Veins, Guidance (ICD-10-PCS; 2021-09-03)
PROC: 0BH17EZ Insertion of Endotracheal Airway into Trachea, Via Natural or Artificial Opening (ICD-10-PCS; 2021-09-03)
PROC: 5A1935Z Respiratory Ventilation, Less than 24 Consecutive Hours (ICD-10-PCS; 2021-09-03)
PROC: 0D9670Z Drainage of Stomach with Drainage Device, Via Natural or Artificial Opening (ICD-10-PCS; 2021-09-03)
DX: K92.2 Gastrointestinal hemorrhage, unspecified (principal); K21.9 Gastro-esophageal reflux disease without esophagitis; K56.2 Volvulus; I48.91 Unspecified atrial fibrillation; I10 Essential (primary) hypertension; R00.0 Tachycardia, unspecified; D50.9 Iron deficiency anemia, unspecified; F25.9 Schizoaffective disorder, unspecified; F41.9 Anxiety disorder, unspecified; A41.89 Other specified sepsis; E87.2 Acidosis; N17.9 Acute kidney failure, unspecified; R09.02 Hypoxemia; D72.829 Elevated white blood cell count, unspecified; R65.10 Systemic inflammatory response syndrome (SIRS) of non-infectious origin without acute organ dysfunction; K22.70 Barrett's esophagus without dysplasia; K21.00 Gastro-esophageal reflux disease with esophagitis, without bleeding; J98.11 Atelectasis; N39.0 Urinary tract infection, site not specified; I95.9 Hypotension, unspecified; K44.9 Diaphragmatic hernia without obstruction or gangrene; Z85.038 Personal history of other malignant neoplasm of large intestine; L89.151 Pressure ulcer of sacral region, stage 1; L89.321 Pressure ulcer of left buttock, stage 1; L89.311 Pressure ulcer of right buttock, stage 1; L89.621 Pressure ulcer of left heel, stage 1; L89.611 Pressure ulcer of right heel, stage 1
CPT/HCPCS: 36415; 36430; 36600; 70450-TC; 71045-TC-FY; 71250-TC; 74176-TC; 80053; 81003; 82248; 82272; 82550; 82607; 82728; 82746; 82803; 83540; 83550; 83605; 83615; 83735; 83880; 84443; 84484; 85025; 85045; 85384; 85610; 85730; 86922; 87040; 87086; 93005; 93010; 93308; 99285-25; C9803; J0131; J3490; P9058; U0003; U0005